=== PATIENT | female | born 1975 | race Two or more races ===

== ENCOUNTER 2018-10-07 16:56 | Inpatient (IN) | payer MEDICAID ==
[2018-10-07 21:57] LABS: ADD MAN DIFF? NO
[2018-10-07 21:59] LABS: ABNORMAL IP MESSAGE 1; BASOPHILS % 0.3 % (0.0-2.0); EOSINOPHILS # 0.2 10^3/ul (0.0-0.5); EOSINOPHILS % 1.3 % (0.0-7.0); HEMATOCRIT 36.9 % (37.0-47.0); HEMOGLOBIN 11.8 g/dl (12.0-16.0); LYMPHOCYTES # 5.7 10^3/ul (0.8-2.9); LYMPHOCYTES % 48.6 % (15.0-51.0); MEAN CORPUSCULAR VOLUME 84.4 fl (82.0-101.0); MEAN PLATELET VOLUME 11.9 fl (7.4-10.4); MONOCYTE # 0.8 10^3/ul (0.3-0.9); MONOCYTES % 6.7 % (0.0-11.0); NEUTROPHILS % 42.7 % (39.0-77.0); PLATELET COUNT 242 10^3/UL (140-415); RED BLOOD COUNT 4.37 10^6/ul (4.20-5.40)
[2018-10-07 21:59] LABS: WHITE BLOOD COUNT 11.7 10^3/ul (4.8-10.8)
[2018-10-07 22:19] LABS: INR 0.92; PARTIAL THROMBOPLASTIN TIME 26.4 Sec (23.0-35.0); POSITIVE DIFF @See below; PROTIME 12.4 Sec (11.9-14.9)
[2018-10-07 22:24] LABS: ALANINE AMINOTRANSFERASE 24 IU/L (13-69); ALBUMIN 4.2 g/dl (3.3-4.9); ALKALINE PHOSPHATASE 62 IU/L (42-121); ANION GAP 13 (5-13); ASPARTATE AMINO TRANSFERASE 27 IU/L (15-46); BILIRUBIN,INDIRECT 0.2 mg/dl (0-1.1); BILIRUBIN,TOTAL 0.2 mg/dl (0.2-1.3); BLOOD UREA NITROGEN 18 mg/dl (7-20); CALCIUM 9.5 mg/dl (8.4-10.2); CARBON DIOXIDE 27 mmol/L (21-31); CHLORIDE 99 mmol/L (97-110); CHOL/HDL RATIO 2.9 RATIO; CHOLESTEROL 127 mg/dl (100-200); CREATININE 1.04 mg/dl (0.44-1.00); Estimated GFR 57 mL/min (>60); GLUCOSE 81 mg/dl (70-220); HDL CHOLESTEROL 43 mg/dl (34-88); LDL CHOLESTEROL,CALCULATED 55 mg/dl; SODIUM 139 mmol/L (135-144); TOTAL PROTEIN 7.2 g/dl (6.1-8.1); TRIGLYCERIDES 145 mg/dl (0-149)
[2018-10-07 22:37] LABS: TROPONIN-I < 0.012 ng/ml (0.000-0.120)
[2018-10-07 22:43] LABS: HEMOGLOBIN A1C 6.3 % (0-5.9)
[2018-10-07 22:44] LABS: ADD UMIC YES; UR ASCORBIC ACID NEGATIVE (NEGATIVE); UR BACTERIA FEW /HPF (NONE SEEN); UR BILIRUBIN (Dip) NEGATIVE (NEGATIVE); UR BLOOD (Dip) NEGATIVE (NEGATIVE); UR CLARITY CLEAR (CLEAR); UR COLOR YELLOW (YELLOW); UR GLUCOSE (Dip) NEGATIVE (NEGATIVE); UR KETONES (Dip) NEGATIVE (NEGATIVE); UR LEUKOCYTE ESTERASE (Dip) 3+ Leu/ul (NEGATIVE); UR NITRITE (Dip) NEGATIVE (NEGATIVE); UR NONSQUAMOUS EPITHELIAL CELL 1 /HPF (NONE SEEN); UR RBC 1 /HPF (0-5); UR TOTAL PROTEIN (Dip) NEGATIVE (NEGATIVE); UR UROBILINOGEN (Dip) NEGATIVE (NEGATIVE); UR WBC 55 /HPF (0-5)
[2018-10-07 23:02] LABS: AMPHETAMINE/METHAMPHETAMINE Negative (NEGATIVE); BARBITURATES Negative (NEGATIVE); BENZODIAZEPINES Negative (NEGATIVE); CANNABINOIDS Negative (NEGATIVE); COCAINE Negative (NEGATIVE); OPIATES Negative (NEGATIVE)
[2018-10-08] MEDS: CEFTRIAXONE 1 GM/50 ML (PMX) 50 ML IVPB ×2 (00:31→23:07)
[2018-10-08] MEDS: DEXTROSE 5%-0.45% NACL 1,000 ML IV ×2 (01:03→12:39)
[2018-10-08] MEDS: hydrALAzine 20 MG INJ IV ×2 (01:29→15:35)
[2018-10-08] MEDS ORDERED: GLUCOSE GEL 15 GRAM TUBE PO ×2 (02:00)
[2018-10-08] MEDS ORDERED: GLUCAGON 1 MG INJ IM (02:00)
[2018-10-08] MEDS ORDERED: GLUCOSE GEL 15 GRAM TUBE BUCCAL (02:00)
[2018-10-08] MEDS ORDERED: DEXTROSE 50% 50 ML SYRINGE IV ×2 (02:00)
[2018-10-08] MEDS ORDERED: ACCU-CHEK XX (02:00)
[2018-10-08] MEDS: INSULIN ASPART [NOVOLOG] 3 ML PEN SC ×7 (05:00→20:41)
[2018-10-08 05:08] LABS: BASOPHILS % 0.3 % (0.0-2.0); EOSINOPHILS # 0.1 10^3/ul (0.0-0.5); EOSINOPHILS % 1.5 % (0.0-7.0); HEMATOCRIT 35.7 % (37.0-47.0); HEMOGLOBIN 11.4 g/dl (12.0-16.0); LYMPHOCYTES # 4.7 10^3/ul (0.8-2.9); LYMPHOCYTES % 50.6 % (15.0-51.0); MEAN CORPUSCULAR HEMOGLOBIN 26.5 pg (29.0-33.0); MEAN CORPUSCULAR HGB CONC 31.9 g/dl (32.0-37.0); MEAN PLATELET VOLUME 12.2 fl (7.4-10.4); MONOCYTE # 0.8 10^3/ul (0.3-0.9); MONOCYTES % 8.1 % (0.0-11.0); NEUTROPHIL # 3.6 10^3/ul (1.6-7.5); NEUTROPHILS % 39.2 % (39.0-77.0); PLATELET COUNT 246 10^3/UL (140-415)
[2018-10-08 05:08] LABS: WHITE BLOOD COUNT 9.3 10^3/ul (4.8-10.8)
[2018-10-08 05:09] LABS: ADD MAN DIFF? NO
[2018-10-08 05:42] LABS: ALANINE AMINOTRANSFERASE 21 IU/L (13-69); ALBUMIN 3.8 g/dl (3.3-4.9); ALBUMIN/GLOBULIN RATIO 1.22; ALKALINE PHOSPHATASE 61 IU/L (42-121); ANION GAP 10 (5-13); ASPARTATE AMINO TRANSFERASE 26 IU/L (15-46); BILIRUBIN,INDIRECT 0.2 mg/dl (0-1.1); BILIRUBIN,TOTAL 0.2 mg/dl (0.2-1.3); BLOOD UREA NITROGEN 15 mg/dl (7-20); CARBON DIOXIDE 26 mmol/L (21-31); CHLORIDE 103 mmol/L (97-110); CREATININE 1.04 mg/dl (0.44-1.00); Estimated GFR 57 mL/min (>60); GLUCOSE 110 mg/dl (70-220); HDL CHOLESTEROL 39 mg/dl (34-88); LDL CHOLESTEROL,CALCULATED 55 mg/dl; POTASSIUM 3.8 mmol/L (3.5-5.1); SODIUM 139 mmol/L (135-144); TOTAL PROTEIN 6.9 g/dl (6.1-8.1); TRIGLYCERIDES 119 mg/dl (0-149)
[2018-10-08 05:42] LABS: CHOLESTEROL 118 mg/dl (100-200)
[2018-10-08] MEDS: ATORVASTATIN 80 MG TAB PO ×2 (05:44→20:39)
[2018-10-08] MEDS: ASPIRIN 81 MG TAB PO ×2 (05:44→08:31)
[2018-10-08] MEDS: PANTOPRAZOLE 40 MG INJ IV (05:44)
[2018-10-08 06:28] LABS: MAGNESIUM 1.6 mg/dl (1.7-2.5)
[2018-10-08 07:10] LABS: HEMOGLOBIN A1C 6.2 % (0-5.9)
[2018-10-08] MEDS: MAGNESIUM SULFATE 2 GM/50 ML 50 ML IVPB (08:32)
[2018-10-08 15:29] LABS: ERYTHROCYTE SEDIMENTATION RATE 30 mm/Hr (0-20)
[2018-10-08 17:06] LABS: D-DIMER 320.38 ng/ml (<460)
[2018-10-08 22:53] LABS: RAPID PLASMA REAGIN NONREACTIVE (NR)
[2018-10-09] MEDS: INSULIN ASPART [NOVOLOG] 3 ML PEN SC ×6 (00:59→20:45)
[2018-10-09] MEDS: hydrALAzine 20 MG INJ IV (02:36)
[2018-10-09] MEDS: DEXTROSE 5%-0.45% NACL 1,000 ML IV ×2 (02:37→16:00)
[2018-10-09] MEDS: PANTOPRAZOLE 40 MG INJ IV (05:04)
[2018-10-09 06:40] LABS: ALBUMIN 3.9 g/dl (3.3-4.9); ANION GAP 13 (5-13); BLOOD UREA NITROGEN 12 mg/dl (7-20); CALCIUM 9.1 mg/dl (8.4-10.2); CARBON DIOXIDE 24 mmol/L (21-31); CHLORIDE 102 mmol/L (97-110); CREATININE 0.88 mg/dl (0.44-1.00); GLUCOSE 189 mg/dl (70-220); MAGNESIUM 1.8 mg/dl (1.7-2.5); PHOSPHORUS 4.4 mg/dl (2.5-4.9); SODIUM 139 mmol/L (135-144)
[2018-10-09] MEDS: ASPIRIN 81 MG TAB PO (09:06)
[2018-10-09] MEDS: ACETAMINOPHEN 650MG/20.3ML CUP PO (17:28)
[2018-10-09] MEDS: ATORVASTATIN 80 MG TAB PO (20:32)
[2018-10-09] MEDS: IOHEXOL 100 ML (22:22)
[2018-10-09] MEDS: SOD CHLORIDE 0.9% 100 ML (22:22)
[2018-10-09] MEDS: CEFTRIAXONE 1 GM/50 ML (PMX) 50 ML IVPB (23:50)
[2018-10-10] MEDS: INSULIN ASPART [NOVOLOG] 3 ML PEN SC ×6 (01:05→20:38)
[2018-10-10] MEDS: hydrALAzine 20 MG INJ IV (03:39)
[2018-10-10] MEDS: DEXTROSE 5%-0.45% NACL 1,000 ML IV (05:06)
[2018-10-10] MEDS: PANTOPRAZOLE 40 MG INJ IV (05:06)
[2018-10-10] MEDS: ASPIRIN 81 MG TAB PO (08:43)
[2018-10-10] MEDS: IBUPROFEN 600 MG TAB PO (09:20)
[2018-10-10] MEDS: LISINOPRIL 10 MG TAB PO (09:21)
[2018-10-10] MEDS: CHLORHEXIDINE GLUCONATE 15 ML UD CUP MT ×2 (09:22→20:35)
[2018-10-10] MEDS: metFORMIN 850 MG TAB PO (18:32)
[2018-10-10] MEDS: ATORVASTATIN 80 MG TAB PO (20:35)
[2018-10-11] MEDS: CEFTRIAXONE 1 GM/50 ML (PMX) 50 ML IVPB (00:51)
[2018-10-11] MEDS: INSULIN ASPART [NOVOLOG] 3 ML PEN SC ×6 (01:20→20:14)
[2018-10-11] MEDS: PANTOPRAZOLE 40 MG INJ IV (05:44)
[2018-10-11] MEDS: metFORMIN 850 MG TAB PO ×3 (07:55→18:04)
[2018-10-11] MEDS: ASPIRIN 81 MG TAB PO (08:30)
[2018-10-11] MEDS: CHLORHEXIDINE GLUCONATE 15 ML UD CUP MT ×2 (08:30→20:13)
[2018-10-11] MEDS: ATENOLOL 50 MG TAB PO (08:30)
[2018-10-11] MEDS: LISINOPRIL 10 MG TAB PO (08:30)
[2018-10-11 09:21] LABS: PROTEIN C 102 % normal (70-180)
[2018-10-11] MEDS: hydrALAzine 20 MG INJ IV (18:04)
[2018-10-11] MEDS: ATORVASTATIN 80 MG TAB PO (20:13)
[2018-10-12] MEDS: CEFTRIAXONE 1 GM/50 ML (PMX) 50 ML IVPB (00:25)
[2018-10-12 05:27] LABS: ADD MAN DIFF? NO
[2018-10-12 05:37] LABS: BASOPHILS % 0.3 % (0.0-2.0); EOSINOPHILS # 0.2 10^3/ul (0.0-0.5); HEMATOCRIT 39.1 % (37.0-47.0); HEMOGLOBIN 12.7 g/dl (12.0-16.0); LYMPHOCYTES # 4.1 10^3/ul (0.8-2.9); LYMPHOCYTES % 34.7 % (15.0-51.0); MEAN CORPUSCULAR HGB CONC 32.5 g/dl (32.0-37.0); MEAN PLATELET VOLUME 12.7 fl (7.4-10.4); MONOCYTE # 0.7 10^3/ul (0.3-0.9); MONOCYTES % 6.1 % (0.0-11.0); NEUTROPHIL # 6.6 10^3/ul (1.6-7.5); NEUTROPHILS % 56.5 % (39.0-77.0); PLATELET COUNT 300 10^3/UL (140-415); RED BLOOD COUNT 4.71 10^6/ul (4.20-5.40); RED CELL DISTRIBUTION WIDTH 12.3 % (11.5-14.5)
[2018-10-12 05:37] LABS: WHITE BLOOD COUNT 11.7 10^3/ul (4.8-10.8)
[2018-10-12 06:06] LABS: ANION GAP 11 (5-13); BLOOD UREA NITROGEN 14 mg/dl (7-20); CALCIUM 9.5 mg/dl (8.4-10.2); CARBON DIOXIDE 24 mmol/L (21-31); CHLORIDE 100 mmol/L (97-110); CREATININE 0.93 mg/dl (0.44-1.00); GLUCOSE 269 mg/dl (70-220); MAGNESIUM 1.7 mg/dl (1.7-2.5); PHOSPHORUS 4.3 mg/dl (2.5-4.9); POTASSIUM 4.4 mmol/L (3.5-5.1); SODIUM 135 mmol/L (135-144)
[2018-10-12] MEDS: PANTOPRAZOLE 40 MG INJ IV (08:02)
[2018-10-12 08:31] LABS: FACTOR VIII ACTIVITY 142 % normal (50-180)
[2018-10-12] MEDS: INSULIN ASPART [NOVOLOG] 3 ML PEN SC ×4 (08:34→20:57)
[2018-10-12] MEDS: metFORMIN 850 MG TAB PO ×2 (08:36→17:48)
[2018-10-12] MEDS: LISINOPRIL 20 MG TAB PO (08:37)
[2018-10-12] MEDS: ASPIRIN 81 MG TAB PO (08:37)
[2018-10-12] MEDS: CHLORHEXIDINE GLUCONATE 15 ML UD CUP MT ×2 (08:37→20:58)
[2018-10-12] MEDS: ATENOLOL 50 MG TAB PO (08:37)
[2018-10-12] MEDS ORDERED: REPAGLINIDE 1 MG TAB PO (12:30)
[2018-10-12 13:27] LABS: AADO2 Arterial 14.7 mmHg (7.0-24.0); Allen Test ACCEPTAB; Arterial Base Excess -0.4 mmol/L (-3.0-3); Arterial Blood Gas Oxygen Sat 96.2 mmHG (95.0-98.0); Arterial COHb 0.6 % (0.0-3.0); Arterial Fraction of Oxyhgb 95.5 % (93.0-99.0); Arterial HCO3 23.9 mmol/L (22.0-26.0); Arterial MetHb 0.1 % (0.0-1.5); Arterial pCO2 38.2 mmhg (35-45); MODE ROOM AIR; Site Right Radial
[2018-10-12] MEDS: REPAGLINIDE 1 MG TAB PO ×2 (13:30→17:48)
[2018-10-12] MEDS: SOD CHLORIDE 0.45% 1,000 ML IV (14:57)
[2018-10-12] MEDS: CEPHALEXIN 500 MG CAP PO ×2 (15:02→20:57)
[2018-10-12 16:12] LABS: B2 GLYCOPROTEIN I AB (IGA) 11 SAU (< OR = 20); B2 GLYCOPROTEIN I AB (IGG) <9 SGU (< OR = 20); B2 GLYCOPROTEIN I AB (IGM) <9 SMU (< OR = 20); CARDIOLIPIN AB - IGA <11 APL; CARDIOLIPIN AB - IGG <14 GPL; CARDIOLIPIN AB - IGM <12 MPL
[2018-10-12] MEDS: ATORVASTATIN 80 MG TAB PO (20:57)
[2018-10-13] MEDS: PANTOPRAZOLE 40 MG INJ IV (05:54)
[2018-10-13] MEDS: PERMETHRIN 1% 59 ML TOP (07:00)
[2018-10-13 07:17] LABS: ADD MAN DIFF? NO
[2018-10-13 07:23] LABS: BASOPHIL # 0.1 10^3/ul (0.0-0.1); BASOPHILS % 0.5 % (0.0-2.0); EOSINOPHILS # 0.4 10^3/ul (0.0-0.5); EOSINOPHILS % 3.3 % (0.0-7.0); HEMATOCRIT 36.4 % (37.0-47.0); LYMPHOCYTES # 4.2 10^3/ul (0.8-2.9); LYMPHOCYTES % 37.9 % (15.0-51.0); MEAN CORPUSCULAR HEMOGLOBIN 27.1 pg (29.0-33.0); MEAN CORPUSCULAR VOLUME 82.2 fl (82.0-101.0); MEAN PLATELET VOLUME 12.8 fl (7.4-10.4); MONOCYTE # 0.7 10^3/ul (0.3-0.9); MONOCYTES % 6.7 % (0.0-11.0); NEUTROPHIL # 5.6 10^3/ul (1.6-7.5); NEUTROPHILS % 51.1 % (39.0-77.0); PLATELET COUNT 276 10^3/UL (140-415); RED BLOOD COUNT 4.43 10^6/ul (4.20-5.40); RED CELL DISTRIBUTION WIDTH 12.4 % (11.5-14.5)
[2018-10-13 07:51] LABS: ANION GAP 11 (5-13); BLOOD UREA NITROGEN 17 mg/dl (7-20); CALCIUM 9.2 mg/dl (8.4-10.2); CARBON DIOXIDE 25 mmol/L (21-31); CHLORIDE 98 mmol/L (97-110); CREATININE 0.91 mg/dl (0.44-1.00); Estimated GFR > 60 mL/min (>60); GLUCOSE 186 mg/dl (70-220); MAGNESIUM 1.7 mg/dl (1.7-2.5); PHOSPHORUS 4.6 mg/dl (2.5-4.9); POTASSIUM 4.5 mmol/L (3.5-5.1); SODIUM 134 mmol/L (135-144)
[2018-10-13] MEDS: INSULIN ASPART [NOVOLOG] 3 ML PEN SC ×4 (08:11→20:44)
[2018-10-13] MEDS: REPAGLINIDE 1 MG TAB PO ×3 (08:12→17:26)
[2018-10-13] MEDS: metFORMIN 850 MG TAB PO ×2 (08:12→17:26)
[2018-10-13] MEDS: CEPHALEXIN 500 MG CAP PO ×2 (08:13→20:43)
[2018-10-13] MEDS: ASPIRIN 81 MG TAB PO (08:13)
[2018-10-13] MEDS: ATENOLOL 50 MG TAB PO (09:10)
[2018-10-13] MEDS: CHLORHEXIDINE GLUCONATE 15 ML UD CUP MT ×2 (09:10→20:43)
[2018-10-13] MEDS: LISINOPRIL 20 MG TAB PO (09:10)
[2018-10-13] MEDS: SOD CHLORIDE 0.45% 1,000 ML IV (17:26)
[2018-10-13] MEDS: ATORVASTATIN 80 MG TAB PO (20:43)
[2018-10-14] MEDS: PANTOPRAZOLE 40 MG INJ IV (05:40)
[2018-10-14 06:25] LABS: ADD MAN DIFF? NO
[2018-10-14 06:38] LABS: BASOPHIL # 0.1 10^3/ul (0.0-0.1); BASOPHILS % 0.3 % (0.0-2.0); EOSINOPHILS # 0.4 10^3/ul (0.0-0.5); EOSINOPHILS % 2.8 % (0.0-7.0); HEMATOCRIT 37.5 % (37.0-47.0); HEMOGLOBIN 12.2 g/dl (12.0-16.0); LYMPHOCYTES # 3.3 10^3/ul (0.8-2.9); LYMPHOCYTES % 22.6 % (15.0-51.0); MEAN CORPUSCULAR HEMOGLOBIN 27.5 pg (29.0-33.0); MEAN CORPUSCULAR HGB CONC 32.5 g/dl (32.0-37.0); MEAN CORPUSCULAR VOLUME 84.7 fl (82.0-101.0); MEAN PLATELET VOLUME 12.7 fl (7.4-10.4); MONOCYTE # 1.3 10^3/ul (0.3-0.9); MONOCYTES % 9.1 % (0.0-11.0); NEUTROPHIL # 9.3 10^3/ul (1.6-7.5); NEUTROPHILS % 64.7 % (39.0-77.0); PLATELET COUNT 271 10^3/UL (140-415); RED BLOOD COUNT 4.43 10^6/ul (4.20-5.40); RED CELL DISTRIBUTION WIDTH 12.4 % (11.5-14.5)
[2018-10-14 06:38] LABS: WHITE BLOOD COUNT 14.4 10^3/ul (4.8-10.8)
[2018-10-14 07:00] LABS: ANION GAP 12 (5-13); BLOOD UREA NITROGEN 17 mg/dl (7-20); CALCIUM 9.2 mg/dl (8.4-10.2); CARBON DIOXIDE 26 mmol/L (21-31); CHLORIDE 100 mmol/L (97-110); CREATININE 0.85 mg/dl (0.44-1.00); Estimated GFR > 60 mL/min (>60); GLUCOSE 179 mg/dl (70-220); MAGNESIUM 1.7 mg/dl (1.7-2.5); PHOSPHORUS 4.2 mg/dl (2.5-4.9); POTASSIUM 4.7 mmol/L (3.5-5.1); SODIUM 138 mmol/L (135-144)
[2018-10-14] MEDS: CEPHALEXIN 500 MG CAP PO ×2 (08:06→21:19)
[2018-10-14] MEDS: CHLORHEXIDINE GLUCONATE 15 ML UD CUP MT ×2 (08:06→21:19)
[2018-10-14] MEDS: INSULIN ASPART [NOVOLOG] 3 ML PEN SC ×4 (08:06→21:00)
[2018-10-14] MEDS: ASPIRIN 81 MG TAB PO (08:06)
[2018-10-14] MEDS: REPAGLINIDE 1 MG TAB PO ×3 (08:07→17:26)
[2018-10-14] MEDS: LISINOPRIL 20 MG TAB PO (08:07)
[2018-10-14] MEDS: metFORMIN 850 MG TAB PO ×2 (08:07→17:27)
[2018-10-14] MEDS: ATENOLOL 50 MG TAB PO (08:07)
[2018-10-14] MEDS: DEXTROSE 5%-0.45% NACL 1,000 ML IV (09:06)
[2018-10-14] MEDS: ONDANSETRON 4 MG INJ IV (13:51)
[2018-10-14] MEDS: ATORVASTATIN 80 MG TAB PO (21:19)
[2018-10-15] MEDS ORDERED: PANTOPRAZOLE 40 MG INJ (02:37)
[2018-10-15] MEDS: PANTOPRAZOLE (EC) 40 MG TAB PO (05:23)
[2018-10-15] MEDS: REPAGLINIDE 1 MG TAB PO ×3 (08:50→17:53)
[2018-10-15] MEDS: metFORMIN 850 MG TAB PO ×2 (08:51→17:53)
[2018-10-15] MEDS: ASPIRIN 81 MG TAB PO (08:53)
[2018-10-15] MEDS: CEPHALEXIN 500 MG CAP PO ×2 (08:53→21:00)
[2018-10-15] MEDS: CHLORHEXIDINE GLUCONATE 15 ML UD CUP MT ×2 (08:53→21:00)
[2018-10-15] MEDS: INSULIN ASPART [NOVOLOG] 3 ML PEN SC ×4 (08:53→21:00)
[2018-10-15] MEDS: LISINOPRIL 20 MG TAB PO (08:54)
[2018-10-15] MEDS: DEXTROSE 5%-0.45% NACL 1,000 ML IV ×2 (08:54→10:35)
[2018-10-15] MEDS: ATENOLOL 50 MG TAB PO (08:54)
[2018-10-15 08:56] LABS: ADD MAN DIFF? NO
[2018-10-15 09:08] LABS: BASOPHIL # 0.1 10^3/ul (0.0-0.1); BASOPHILS % 0.4 % (0.0-2.0); EOSINOPHILS # 0.4 10^3/ul (0.0-0.5); EOSINOPHILS % 3.7 % (0.0-7.0); HEMATOCRIT 36.2 % (37.0-47.0); HEMOGLOBIN 11.6 g/dl (12.0-16.0); LYMPHOCYTES # 3.5 10^3/ul (0.8-2.9); LYMPHOCYTES % 30.7 % (15.0-51.0); MEAN CORPUSCULAR HEMOGLOBIN 27.2 pg (29.0-33.0); MEAN CORPUSCULAR VOLUME 84.8 fl (82.0-101.0); MEAN PLATELET VOLUME 12.8 fl (7.4-10.4); MONOCYTE # 0.7 10^3/ul (0.3-0.9); NEUTROPHIL # 6.6 10^3/ul (1.6-7.5); NEUTROPHILS % 58.5 % (39.0-77.0); PLATELET COUNT 315 10^3/UL (140-415); RED BLOOD COUNT 4.27 10^6/ul (4.20-5.40); RED CELL DISTRIBUTION WIDTH 12.1 % (11.5-14.5)
[2018-10-15 09:08] LABS: WHITE BLOOD COUNT 11.2 10^3/ul (4.8-10.8)
[2018-10-15 09:26] LABS: ANION GAP 12 (5-13); BLOOD UREA NITROGEN 18 mg/dl (7-20); CALCIUM 9.2 mg/dl (8.4-10.2); CARBON DIOXIDE 26 mmol/L (21-31); CHLORIDE 100 mmol/L (97-110); CREATININE 0.84 mg/dl (0.44-1.00); Estimated GFR > 60 mL/min (>60); GLUCOSE 243 mg/dl (70-220); MAGNESIUM 1.6 mg/dl (1.7-2.5); PHOSPHORUS 4.5 mg/dl (2.5-4.9); POTASSIUM 4.6 mmol/L (3.5-5.1); SODIUM 138 mmol/L (135-144)
[2018-10-15] MEDS: MAGNESIUM SULFATE 2 GM/50 ML 50 ML IVPB (11:12)
[2018-10-15] MEDS: ATORVASTATIN 80 MG TAB PO (21:00)
[2018-10-16] MEDS: PANTOPRAZOLE (EC) 40 MG TAB PO (05:27)
[2018-10-16 05:56] LABS: ADD MAN DIFF? NO
[2018-10-16 06:01] LABS: BASOPHIL # 0.1 10^3/ul (0.0-0.1); BASOPHILS % 0.4 % (0.0-2.0); EOSINOPHILS # 0.6 10^3/ul (0.0-0.5); EOSINOPHILS % 3.8 % (0.0-7.0); HEMATOCRIT 36.3 % (37.0-47.0); HEMOGLOBIN 11.6 g/dl (12.0-16.0); LYMPHOCYTES # 4.1 10^3/ul (0.8-2.9); LYMPHOCYTES % 27.2 % (15.0-51.0); MEAN CORPUSCULAR HEMOGLOBIN 27.2 pg (29.0-33.0); MEAN PLATELET VOLUME 12.2 fl (7.4-10.4); MONOCYTE # 0.9 10^3/ul (0.3-0.9); NEUTROPHIL # 9.3 10^3/ul (1.6-7.5); NEUTROPHILS % 61.6 % (39.0-77.0); PLATELET COUNT 351 10^3/UL (140-415); RED BLOOD COUNT 4.27 10^6/ul (4.20-5.40); RED CELL DISTRIBUTION WIDTH 12.2 % (11.5-14.5)
[2018-10-16 06:01] LABS: WHITE BLOOD COUNT 15.1 10^3/ul (4.8-10.8)
[2018-10-16 06:21] LABS: ANION GAP 13 (5-13); BLOOD UREA NITROGEN 17 mg/dl (7-20); CALCIUM 9.5 mg/dl (8.4-10.2); CARBON DIOXIDE 26 mmol/L (21-31); CHLORIDE 100 mmol/L (97-110); CREATININE 0.97 mg/dl (0.44-1.00); Estimated GFR > 60 mL/min (>60); GLUCOSE 173 mg/dl (70-220); MAGNESIUM 1.8 mg/dl (1.7-2.5); PHOSPHORUS 5.4 mg/dl (2.5-4.9); POTASSIUM 4.8 mmol/L (3.5-5.1); SODIUM 139 mmol/L (135-144)
[2018-10-16] MEDS: INSULIN ASPART [NOVOLOG] 3 ML PEN SC ×4 (08:04→20:59)
[2018-10-16] MEDS: REPAGLINIDE 1 MG TAB PO ×3 (08:04→17:30)
[2018-10-16] MEDS: metFORMIN 850 MG TAB PO ×2 (08:05→17:30)
[2018-10-16] MEDS: DEXTROSE 5%-0.45% NACL 1,000 ML IV ×2 (09:00→15:10)
[2018-10-16] MEDS: ASPIRIN 81 MG TAB PO (09:04)
[2018-10-16] MEDS: LISINOPRIL 20 MG TAB PO (09:04)
[2018-10-16] MEDS: CEPHALEXIN 500 MG CAP PO ×2 (09:04→20:41)
[2018-10-16] MEDS: ATENOLOL 50 MG TAB PO (09:04)
[2018-10-16] MEDS: CHLORHEXIDINE GLUCONATE 15 ML UD CUP MT ×2 (09:05→20:41)
[2018-10-16] MEDS: ATORVASTATIN 80 MG TAB PO (20:41)
[2018-10-17] MEDS: PANTOPRAZOLE (EC) 40 MG TAB PO (05:50)
[2018-10-17 06:25] LABS: ADD MAN DIFF? NO; BASOPHIL # 0.1 10^3/ul (0.0-0.1); BASOPHILS % 0.6 % (0.0-2.0); EOSINOPHILS # 0.4 10^3/ul (0.0-0.5); EOSINOPHILS % 3.4 % (0.0-7.0); HEMATOCRIT 36.1 % (37.0-47.0); HEMOGLOBIN 11.6 g/dl (12.0-16.0); LYMPHOCYTES # 4.2 10^3/ul (0.8-2.9); MEAN CORPUSCULAR HGB CONC 32.1 g/dl (32.0-37.0); MEAN PLATELET VOLUME 12.3 fl (7.4-10.4); MONOCYTE # 0.8 10^3/ul (0.3-0.9); MONOCYTES % 6.6 % (0.0-11.0); NEUTROPHIL # 6.4 10^3/ul (1.6-7.5); NEUTROPHILS % 53.1 % (39.0-77.0); PLATELET COUNT 352 10^3/UL (140-415); RED CELL DISTRIBUTION WIDTH 12.2 % (11.5-14.5)
[2018-10-17 06:59] LABS: ANION GAP 15 (5-13); BLOOD UREA NITROGEN 18 mg/dl (7-20); CALCIUM 9.3 mg/dl (8.4-10.2); CARBON DIOXIDE 24 mmol/L (21-31); CHLORIDE 100 mmol/L (97-110); CREATININE 0.85 mg/dl (0.44-1.00); Estimated GFR > 60 mL/min (>60); GLUCOSE 154 mg/dl (70-220); MAGNESIUM 1.6 mg/dl (1.7-2.5); PHOSPHORUS 5.6 mg/dl (2.5-4.9); POTASSIUM 4.6 mmol/L (3.5-5.1); SODIUM 139 mmol/L (135-144)
[2018-10-17] MEDS: ASPIRIN 81 MG TAB PO (08:12)
[2018-10-17] MEDS: CEPHALEXIN 500 MG CAP PO ×2 (08:12→20:53)
[2018-10-17] MEDS: metFORMIN 850 MG TAB PO ×2 (08:12→17:31)
[2018-10-17] MEDS: REPAGLINIDE 1 MG TAB PO ×2 (08:12→12:17)
[2018-10-17] MEDS: LISINOPRIL 20 MG TAB PO (08:14)
[2018-10-17] MEDS: INSULIN ASPART [NOVOLOG] 3 ML PEN SC ×4 (08:14→20:53)
[2018-10-17] MEDS: ATENOLOL 50 MG TAB PO (08:15)
[2018-10-17] MEDS: CHLORHEXIDINE GLUCONATE 15 ML UD CUP MT ×2 (08:23→20:53)
[2018-10-17] MEDS: MAGNESIUM SULFATE 2 GM/50 ML 50 ML IVPB (12:43)
[2018-10-17] MEDS: DEXTROSE 5%-0.45% NACL 1,000 ML IV (17:33)
[2018-10-17] MEDS: ATORVASTATIN 80 MG TAB PO (20:53)
[2018-10-18 05:32] LABS: ADD MAN DIFF? NO
[2018-10-18 05:35] LABS: WHITE BLOOD COUNT 12.5 10^3/ul (4.8-10.8)
[2018-10-18 05:35] LABS: BASOPHIL # 0.1 10^3/ul (0.0-0.1); BASOPHILS % 0.4 % (0.0-2.0); EOSINOPHILS # 0.4 10^3/ul (0.0-0.5); HEMATOCRIT 36.4 % (37.0-47.0); HEMOGLOBIN 12.2 g/dl (12.0-16.0); LYMPHOCYTES # 4.2 10^3/ul (0.8-2.9); LYMPHOCYTES % 33.4 % (15.0-51.0); MEAN CORPUSCULAR HEMOGLOBIN 27.6 pg (29.0-33.0); MEAN CORPUSCULAR HGB CONC 33.5 g/dl (32.0-37.0); MEAN CORPUSCULAR VOLUME 82.4 fl (82.0-101.0); MEAN PLATELET VOLUME 11.7 fl (7.4-10.4); MONOCYTE # 0.8 10^3/ul (0.3-0.9); MONOCYTES % 6.5 % (0.0-11.0); NEUTROPHIL # 6.8 10^3/ul (1.6-7.5); NEUTROPHILS % 54.9 % (39.0-77.0); PLATELET COUNT 368 10^3/UL (140-415); RED BLOOD COUNT 4.42 10^6/ul (4.20-5.40); RED CELL DISTRIBUTION WIDTH 12.3 % (11.5-14.5)
[2018-10-18 06:01] LABS: ANION GAP 12 (5-13); BLOOD UREA NITROGEN 18 mg/dl (7-20); CALCIUM 9.3 mg/dl (8.4-10.2); CARBON DIOXIDE 26 mmol/L (21-31); CHLORIDE 102 mmol/L (97-110); CREATININE 0.86 mg/dl (0.44-1.00); Estimated GFR > 60 mL/min (>60); GLUCOSE 156 mg/dl (70-220); MAGNESIUM 1.9 mg/dl (1.7-2.5); PHOSPHORUS 5.1 mg/dl (2.5-4.9); POTASSIUM 4.6 mmol/L (3.5-5.1); SODIUM 140 mmol/L (135-144)
[2018-10-18] MEDS: PANTOPRAZOLE (EC) 40 MG TAB PO (06:54)
[2018-10-18] MEDS: INSULIN ASPART [NOVOLOG] 3 ML PEN SC ×4 (08:51→20:20)
[2018-10-18] MEDS: glipiZIDE 5 MG TAB PO (08:52)
[2018-10-18] MEDS: CHLORHEXIDINE GLUCONATE 15 ML UD CUP MT ×2 (08:52→20:17)
[2018-10-18] MEDS: metFORMIN 850 MG TAB PO ×2 (08:52→17:49)
[2018-10-18] MEDS: ASPIRIN 81 MG TAB PO (08:52)
[2018-10-18] MEDS: ATENOLOL 50 MG TAB PO (08:53)
[2018-10-18] MEDS: LISINOPRIL 20 MG TAB PO (08:53)
[2018-10-18] MEDS: DEXTROSE 5%-0.45% NACL 1,000 ML IV (18:01)
[2018-10-18] MEDS: ATORVASTATIN 80 MG TAB PO (20:17)
[2018-10-19 07:15] LABS: ADD MAN DIFF? NO
[2018-10-19 07:21] LABS: BASOPHIL # 0.1 10^3/ul (0.0-0.1); BASOPHILS % 0.5 % (0.0-2.0); EOSINOPHILS # 0.3 10^3/ul (0.0-0.5); EOSINOPHILS % 2.1 % (0.0-7.0); HEMATOCRIT 35.5 % (37.0-47.0); HEMOGLOBIN 11.5 g/dl (12.0-16.0); LYMPHOCYTES # 4.6 10^3/ul (0.8-2.9); LYMPHOCYTES % 29.4 % (15.0-51.0); MEAN CORPUSCULAR HEMOGLOBIN 27.3 pg (29.0-33.0); MEAN CORPUSCULAR HGB CONC 32.4 g/dl (32.0-37.0); MEAN CORPUSCULAR VOLUME 84.1 fl (82.0-101.0); MEAN PLATELET VOLUME 12.1 fl (7.4-10.4); MONOCYTE # 1.2 10^3/ul (0.3-0.9); MONOCYTES % 7.5 % (0.0-11.0); NEUTROPHIL # 9.1 10^3/ul (1.6-7.5); NEUTROPHILS % 58.5 % (39.0-77.0); PLATELET COUNT 415 10^3/UL (140-415); RED BLOOD COUNT 4.22 10^6/ul (4.20-5.40); RED CELL DISTRIBUTION WIDTH 12.3 % (11.5-14.5)
[2018-10-19 07:21] LABS: WHITE BLOOD COUNT 15.5 10^3/ul (4.8-10.8)
[2018-10-19 07:53] LABS: ANION GAP 16 (5-13); BLOOD UREA NITROGEN 18 mg/dl (7-20); CALCIUM 9.3 mg/dl (8.4-10.2); CARBON DIOXIDE 23 mmol/L (21-31); CHLORIDE 101 mmol/L (97-110); CREATININE 0.79 mg/dl (0.44-1.00); Estimated GFR > 60 mL/min (>60); GLUCOSE 189 mg/dl (70-220); MAGNESIUM 1.6 mg/dl (1.7-2.5); PHOSPHORUS 5.3 mg/dl (2.5-4.9); POTASSIUM 4.6 mmol/L (3.5-5.1); SODIUM 140 mmol/L (135-144)
[2018-10-19] MEDS: metFORMIN 850 MG TAB PO ×2 (09:20→20:36)
[2018-10-19] MEDS: INSULIN ASPART [NOVOLOG] 3 ML PEN SC ×4 (09:28→21:42)
[2018-10-19] MEDS: glipiZIDE 5 MG TAB PO (09:29)
[2018-10-19] MEDS: ASPIRIN 81 MG TAB PO (09:30)
[2018-10-19] MEDS: PANTOPRAZOLE (EC) 40 MG TAB PO (09:30)
[2018-10-19] MEDS: ATENOLOL 50 MG TAB PO (09:30)
[2018-10-19] MEDS: LISINOPRIL 20 MG TAB PO (09:31)
[2018-10-19] MEDS: DEXTROSE 5%-0.45% NACL 1,000 ML IV (10:45)
[2018-10-19] MEDS: MAGNESIUM OXIDE 400 MG TAB PO (10:46)
[2018-10-19] MEDS: CHLORHEXIDINE GLUCONATE 15 ML UD CUP MT ×2 (10:46→20:37)
[2018-10-19] MEDS: ATORVASTATIN 80 MG TAB PO (20:37)
[2018-10-20 06:02] LABS: ADD MAN DIFF? NO
[2018-10-20 06:13] LABS: WHITE BLOOD COUNT 14.2 10^3/ul (4.8-10.8)
[2018-10-20 06:13] LABS: ABNORMAL IP MESSAGE 1; BASOPHIL # 0.1 10^3/ul (0.0-0.1); BASOPHILS % 0.8 % (0.0-2.0); EOSINOPHILS # 0.4 10^3/ul (0.0-0.5); EOSINOPHILS % 3.1 % (0.0-7.0); HEMATOCRIT 36.1 % (37.0-47.0); HEMOGLOBIN 11.6 g/dl (12.0-16.0); LYMPHOCYTES # 5.1 10^3/ul (0.8-2.9); LYMPHOCYTES % 35.9 % (15.0-51.0); MEAN CORPUSCULAR HEMOGLOBIN 26.8 pg (29.0-33.0); MEAN CORPUSCULAR HGB CONC 32.1 g/dl (32.0-37.0); MEAN CORPUSCULAR VOLUME 83.4 fl (82.0-101.0); MEAN PLATELET VOLUME 11.8 fl (7.4-10.4); MONOCYTE # 0.8 10^3/ul (0.3-0.9); MONOCYTES % 5.9 % (0.0-11.0); NEUTROPHIL # 7.3 10^3/ul (1.6-7.5); NEUTROPHILS % 51.8 % (39.0-77.0); PLATELET COUNT 425 10^3/UL (140-415); RED BLOOD COUNT 4.33 10^6/ul (4.20-5.40); RED CELL DISTRIBUTION WIDTH 12.1 % (11.5-14.5)
[2018-10-20 06:29] LABS: POSITIVE DIFF @See below
[2018-10-20] MEDS: INSULIN ASPART [NOVOLOG] 3 ML PEN SC ×4 (09:00→20:51)
[2018-10-20] MEDS: glipiZIDE 5 MG TAB PO (09:02)
[2018-10-20] MEDS: ASPIRIN 81 MG TAB PO (09:02)
[2018-10-20] MEDS: CHLORHEXIDINE GLUCONATE 15 ML UD CUP MT ×2 (09:02→20:50)
[2018-10-20] MEDS: PANTOPRAZOLE (EC) 40 MG TAB PO (09:02)
[2018-10-20] MEDS: metFORMIN 850 MG TAB PO ×2 (09:02→18:02)
[2018-10-20] MEDS: ATENOLOL 50 MG TAB PO (09:03)
[2018-10-20] MEDS: LISINOPRIL 20 MG TAB PO (09:03)
[2018-10-20] MEDS: ATORVASTATIN 80 MG TAB PO (20:50)
[2018-10-21 07:18] LABS: ADD MAN DIFF? NO
[2018-10-21 07:20] LABS: BASOPHIL # 0.1 10^3/ul (0.0-0.1); EOSINOPHILS # 0.4 10^3/ul (0.0-0.5); EOSINOPHILS % 2.7 % (0.0-7.0); HEMATOCRIT 41.2 % (37.0-47.0); HEMOGLOBIN 12.9 g/dl (12.0-16.0); LYMPHOCYTES # 4.6 10^3/ul (0.8-2.9); LYMPHOCYTES % 31.9 % (15.0-51.0); MEAN CORPUSCULAR HEMOGLOBIN 26.7 pg (29.0-33.0); MEAN CORPUSCULAR HGB CONC 31.3 g/dl (32.0-37.0); MEAN CORPUSCULAR VOLUME 85.3 fl (82.0-101.0); MEAN PLATELET VOLUME 11.5 fl (7.4-10.4); MONOCYTE # 0.8 10^3/ul (0.3-0.9); MONOCYTES % 5.5 % (0.0-11.0); NEUTROPHIL # 8.1 10^3/ul (1.6-7.5); NEUTROPHILS % 56.9 % (39.0-77.0); PLATELET COUNT 389 10^3/UL (140-415); RED BLOOD COUNT 4.83 10^6/ul (4.20-5.40); RED CELL DISTRIBUTION WIDTH 12.2 % (11.5-14.5)
[2018-10-21 07:20] LABS: WHITE BLOOD COUNT 14.3 10^3/ul (4.8-10.8)
[2018-10-21] MEDS: CHLORHEXIDINE GLUCONATE 15 ML UD CUP MT (08:07)
[2018-10-21] MEDS: INSULIN ASPART [NOVOLOG] 3 ML PEN SC ×3 (08:08→17:37)
[2018-10-21] MEDS: metFORMIN 850 MG TAB PO ×2 (08:09→17:40)
[2018-10-21] MEDS: PANTOPRAZOLE (EC) 40 MG TAB PO (08:09)
[2018-10-21] MEDS: ASPIRIN 81 MG TAB PO (08:09)
[2018-10-21] MEDS: glipiZIDE 5 MG TAB PO (08:09)
[2018-10-21] MEDS: ATENOLOL 50 MG TAB PO (08:11)
[2018-10-21] MEDS: LISINOPRIL 20 MG TAB PO (08:11)
== END 2018-10-21 18:59 | DRG 64 ==
LOC: ICU 23:33 → TEL 10-09 14:27 → PP2 10-11 16:42 → E/R 16:56
PROVIDERS: Family Medicine
DX: I63.9 Cerebral infarction, unspecified (principal); G93.6 Cerebral edema; I67.5 Moyamoya disease; G81.91 Hemiplegia, unspecified affecting right dominant side; G93.49 Other encephalopathy; N39.0 Urinary tract infection, site not specified; I10 Essential (primary) hypertension; E11.9 Type 2 diabetes mellitus without complications; E78.5 Hyperlipidemia, unspecified; I65.23 Occlusion and stenosis of bilateral carotid arteries; R47.1 Dysarthria and anarthria; K08.89 Other specified disorders of teeth and supporting structures
CPT/HCPCS: 36415; 36600; 70450; 70496; 70498; 70544; 70548; 70551; 70553; 71045; 80048; 80053; 80061; 80069; 80307; 81001; 81240; 82803; 82962; 83036; 83090; 83735; 83890; 84100; 84443; 84484; 85025; 85240; 85300; 85302; 85305; 85378; 85610; 85651; 85730; 86146; 86147; 86592; 87040; 87081; 87086; 92526; 92610; 93005; 93306; 93880; 97110; 97116; 97161; 97167; 97530; 97535; 99291-25